=== PATIENT | female | born 1990 | race Caucasian/White ===

== ENCOUNTER 2019-05-11 20:53 | Emergency (ER) | payer OTHER ==
[~2019-05-11] VITALS: Ht 160 cm; Wt 61.2 kg
== END 2019-05-11 23:52 | disposition home or self-care (01) ==
LOC: ER 20:53 → EDBD 21:44 → ER 21:44
DX: K29.70 Gastritis, unspecified, without bleeding (principal); T78.49XA Other allergy, initial encounter